=== PATIENT | male | born 1975 ===

== ENCOUNTER 2017-05-10 07:14 | Emergency (ER) | payer OTHER ==
[2017-05-10 07:18] VITALS: TEMP 97; BMI 33.7
[2017-05-10 07:30] VITALS: RESP 18
--- NOTE | 2017-05-10 07:51 | ED PDOC ---
Lower Extremity Pain/Injury Time Seen by Provider: 05/10/17 07:25 Chief Complaint (Nursing): Lower Extremity Problem/Injury History/Exam Limitations: no limitations Onset/Duration Of Symptoms: Days (1) Current Symptoms Are (Timing): Still Present Additional Complaint(s): Pt reports pain and swelling to L ankle and lower leg X 2 days, no h/o trauma, no paresthesias, no weakness. Pain worse when lying flat, better when dangling over bed. - Ankle/Foot Description Of Injury: Other (None) Alleviating Factor(s): OTC Pain Medication - Risk Factors DVT Risk Factors: Pos: None Past Medical History Reviewed: Nursing Documentation, Vital Signs Vital Signs: Last Vital Signs Temp 97 F L 05/10/17 07:26 Pulse 74 05/10/17 07:26 Resp 18 05/10/17 07:26 BP 139/95 H 05/10/17 07:26 Pulse Ox 98 05/10/17 07:27 - Medical History PMH: HTN, Hypercholesterolemia Denies: Chronic Kidney Disease - Surgical History Surgical History: Appendectomy (AGE 14) Other surgeries: L knee surgery - Family History Family History: States: Unknown Family Hx - Living Arrangements Living Arrangements: With Family - Social History Current smoker - smoking cessation education provided: No Alcohol: None - Home Medications Home Medications: Ambulatory Orders Medication Instructions Recorded Atorvastatin Calcium 20 mg PO DAILY 03/18/15 Ergocalciferol (Vitamin D2) 50,000 iu PO QWK 03/18/15 [Vitamin D] Icosapent Ethyl [Vascepa] 2 gm PO BID 03/18/15 Valsartan/Hydrochlorothiazide 1 tab PO DAILY 03/18/15 [Valsartan and Hydrochlorothiazide 12.5 mg-160] Hydrocodone/Acetaminophen [Vicodin 1 tab PO Q6 PRN 03/20/15 Es 300 mg-7.5 mg] traMADol [Ultram] 50 mg PO Q6H PRN #10 tab 05/10/17 - Allergies Allergies/Adverse Reactions: Allergies Allergy/AdvReac Type Severity Reaction Status Date / Time No Known Allergies Allergy Verified 05/10/17 07:27 Wells Criteria for PE - Wells Criteria for Pulmonary Embolism Clinical Signs and Symptoms of DVT: No P.E is #1 Diagnosis, or Equally Likely: No Heart Rate >100: No Immobilization at least 3 days;Surgery previous 4 weeks: No Previous, objectively diagnosed PE or DVT: No Hemoptysis: No Malignancy w/treatment within 6 months, or palliative: No Total Score: 0 Review of Systems Constitutional: Negative for: Fever, Chills Musculoskeletal: Positive for: Leg Pain, Foot Pain. Negative for: Back Pain Skin: Negative for: Rash, Lesions Neurological: Negative for: Weakness, Numbness, Headache Physical Exam - Reviewed Nursing Documentation Reviewed: Yes Vital Signs Reviewed: Yes - Physical Exam Appears: Positive for: Well, No Acute Distress Skin: Positive for: Normal Color, Warm, Dry Cardiovascular/Chest: Positive for: Regular Rate, Rhythm Respiratory: Positive for: Normal Breath Sounds Extremity: Positive for: Normal ROM, Tenderness (L lateral ankle), Capillary Refill (<2 sec). Negative for: Pedal Edema, Calf Tenderness, Deformity, Swelling Neurologic/Psych: Positive for: Alert, Oriented. Negative for: Motor/Sensory Deficits - ECG O2 Sat by Pulse Oximetry: 98 - Other Rad XR L ankle X-Ray: Read By Radiologist (No acute fractures or dislocations. If symptoms persist consider followup CT scan or MRI. Tiny corticated bony density within the soft tissues subjacent to the inferior tip medial malleolus possibly representing some old posttraumatic mineralization or old unfused fracture deformity. Consider follow-up studies as above if necessary.) XR L foot X-Ray: Read By Radiologist (No acute displaced fracture seen. If symptoms persist or occult fracture suspected clinically recommend repeat radiographs in 5-10 days as most fractures become radiographically evident in this timeframe.) - CT Scan/US Doppler LLE Other Rad Studies (CT/US): Radiology Report Reviewed (No evidence of deep venous thrombosis in the left lower extremity.) Medical Decision Making Medical Decision Makin yo with L ankle/lower leg pain. - XR L ankle/foot - LLE Doppler ultrasound - Tramadol Disposition - Clinical Impression Clinical Impression: Ankle pain, left - Disposition Referrals: Geo Shelby III, MD [Staff Provider] - Disposition: Routine/Home Disposition Time: 09:50 Condition: STABLE Prescriptions: traMADol [Ultram] 50 mg PO Q6H PRN #10 tab PRN Reason: Pain, Severe (8-10) Instructions: Arthralgia (ED)
[2017-05-10 10:12] VITALS: BP 130/90; PULSE 70
--- NOTE | 2017-05-10 10:17 | US ---
Left lower extremity ultrasound. Indication: Left lower extremity pain Technique: Duplex ultrasound evaluation of the left lower extremity Comparison: None available Findings: There is normal flow, compressibility, and augmentation of the left common femoral, femoral, and popliteal veins. The left posterior tibial veins appear patent. Impression: No evidence of deep venous thrombosis in the left lower extremity.
--- NOTE | 2017-05-10 12:28 | RAD ---
PROCEDURE: Left Ankle Radiographs. HISTORY: Lateral pain COMPARISON: Comparison made with concurrent radiographs of the left foot as well as prior radiographs of the left foot dated 05/24/2014 FINDINGS: BONES: Current study reveals no evidence of acute displaced fracture nor dislocation. Talar dome intact. JOINTS: Conical mortise maintained. There is a small on elliptical shaped corticated density within the soft tissues subjacent to inferior tip of the medial malleolus likely representing some old posttraumatic mineralization or possibly old unfused avulsion fracture. Subchondral cystic changes are also noted within the inferior tip of the medial malleolus. Minor bilateral soft tissue swelling. Plantar and posterior calcaneal surface enthesophytes present. SOFT TISSUES: Normal. OTHER FINDINGS: None. IMPRESSION: No acute fractures or dislocations. . If symptoms persist consider followup CT scan or MRI Tiny corticated bony density within the soft tissues subjacent to the inferior tip medial malleolus possibly representing some old posttraumatic mineralization or old unfused fracture deformity. Consider follow-up studies as above if necessary
--- NOTE | 2017-05-10 12:44 | RAD ---
PROCEDURE: Left Foot Radiographs. HISTORY: Lateral pain COMPARISON: Comparison made with prior radiographs left foot 05/24/2014. Correlation also made with concurrent left ankle radiographs. FINDINGS: BONES: No evidence of acute displaced fracture nor dislocation. The osseous structures appear grossly intact. Small plantar and posterior calcaneal surface enthesophytes of former slightly larger than latter unchanged. Previously noted small elliptical shaped corticated density within the soft tissues subjacent to inferior tip of the medial malleolus likely representing some old posttraumatic mineralization or possibly old unfused avulsion fracture less well seen compared to prior ankle radiographs. Subchondral cystic changes are also noted within the inferior tip of the medial malleolus JOINTS: Normal. SOFT TISSUES: Normal. OTHER FINDINGS: None. IMPRESSION: No acute displaced fracture seen. If symptoms persist or occult fracture suspected clinically recommend repeat radiographs in 5-10 days as most fractures become radiographically evident in this timeframe. S. See above discussion for additional findings and details.
[2017-05-18 15:51] VITALS: O2SAT 98
== END 2017-05-10 10:08 | disposition home or self-care (01) ==
LOC: H.ER 07:14
DX: M25.572 Pain in left ankle and joints of left foot (principal); I10 Essential (primary) hypertension

== ENCOUNTER 2018-10-11 06:48 | Day surgery (SDC) | payer BC, OTHER ==
[2018-10-02 09:02] VITALS: BMI 33.8
--- NOTE | 2018-10-02 14:02 | RAD ---
Date of service: 10/02/2018 HISTORY: pre-op COMPARISON: 03/18/2015 TECHNIQUE: Chest PA and lateral FINDINGS: LUNGS: No active pulmonary disease. PLEURA: No significant pleural effusion identified. No pneumothorax apparent. CARDIOVASCULAR: No aortic atherosclerotic calcification present. Normal cardiac size. No pulmonary vascular congestion. OSSEOUS STRUCTURES: No significant abnormalities. VISUALIZED UPPER ABDOMEN: Normal. OTHER FINDINGS: None. IMPRESSION: No active disease. No significant interval change compared to the prior examination(s).
[2018-10-02 14:19] LABS: SQUAMOUS EPITHIAL < 1 /hpf (0-5); URINE BILIRUBIN NEGATIVE (NEGATIVE); URINE BLOOD NEGATIVE (NEGATIVE); URINE CLARITY CLEAR (Clear); URINE COLOR YELLOW (YELLOW); URINE GLUCOSE (UA) NEG (Normal); URINE LEUKOCYTE ESTERASE NEG Leu/uL (Negative); URINE PROTEIN NEGATIVE (NEGATIVE); URINE UROBILINOGEN 0.2-1.0 mg/dL (0.2-1.0)
--- NOTE | 2018-10-02 17:44 | CARD ---
APPROVED REPORT Date of service: 10/02/2018 EKG Measurement Heart [id number] <Conclusion> Normal sinus rhythm Minimal voltage criteria for LVH, may be normal variant Borderline ECG
[2018-10-11 07:31] VITALS: O2SAT 99
[2018-10-11] MEDS ORDERED: Rocuronium 10 mg/ml (5 ml) ONE (09:37)
[2018-10-11] MEDS ORDERED: Midazolam 2 MG/2 ML VIAL ONE (09:37)
[2018-10-11] MEDS ORDERED: Propofol 10 mg/ml Inj (20 ML) ONE ×2 (09:37→11:38)
[2018-10-11] MEDS ORDERED: Lidocaine 4% (Laryng-O-Jet) Kit MM ONE (09:38)
[2018-10-11] MEDS ORDERED: Succinylcholine 200 mg/10 ml Inj IV ONE (09:38)
[2018-10-11] MEDS ORDERED: Neostigmine 1:1000 (1 mg/ml) Inj ONE (09:38)
[2018-10-11] MEDS ORDERED: Lidocaine 1% 5ml Abboject ONE (09:38)
--- NOTE | 2018-10-11 09:38 | CP.SDSHP ---
Same Day Surgery H & P - History Proposed Procedure: Right shoulder arthroscopy Pre-Op Diagnosis: Right shoulder SLAP tear - Previous Medical/Surgical History Cardiac: Hypertension Pain: 4.Moderate Pain Previous Surgical History: appendectomy, L knee arthroscopy - Allergies Allergies: Allergies No Known Allergies Allergy (Verified 10/11/18 07:00) - Current Medications Current Medications: metoprolol - Physical Exam General Appearance: NAD Vital Signs: Vital Signs 10/11/18 10/11/18 07:29 07:35 Temperature 98.7 F Pulse Rate 69 69 Respiratory 18 Rate Blood Pressure 146/91 H O2 Sat by Pulse 99 Oximetry Mental Status: Alert & Oriented x3 Neuro: WNL Heart: WNL Lungs: WNL GI: WNL Social History: Alcohol (socially) - {Optional Preform as Required} Abdomen: WNL Integument: WNL Ortho: Other ENT: WNL - Impression Impression: Patient is a 43 y/o male who presents for elective right shoulder arthroscopy today after failing conservative treatment for the past 4-5 months. Risks/benefits/alternatives were explained to the patient who agrees to proceed with procedure listed. Pt. Evaluated Today:Candidate for Anesthesia & Procedure: Yes - Date & Time Date: 10/11/18 Time: 09:00 Short Stay Discharge - Short Stay Discharge Admitting Diagnosis/Reason for Visit: M75.121/ S43.431A/ M25.611/ M25.511/ Disposition: HOME/ ROUTINE Referrals: Jg Ruiz MD [Primary Care Provider] -
[2018-10-11] MEDS ORDERED: Phenylephrine 10 mg/ml Inj ONE (09:40)
[2018-10-11] MEDS ORDERED: Lidocaine 2% w Epi 1:100,000 Inj IJ ONE (10:29)
[2018-10-11] MEDS ORDERED: Bacitracin Ointment 30 GM TUBE ONE (10:29)
[2018-10-11] MEDS ORDERED: Lidocaine 1% Inj (20ml) ONE (10:29)
[2018-10-11] MEDS ORDERED: Ropivacaine 0.5% 30ML IV ONE ×2 (10:32→10:44)
[2018-10-11] MEDS ORDERED: EPINEPHrine 1:1000 Nasal Sol(30mL) ONE (10:43)
[2018-10-11] MEDS ORDERED: Lactated Ringer's 1,000 ML IV ONE (11:20)
[2018-10-11] MEDS ORDERED: EPINEPHrine 1:1000 Nasal Sol(30mL) TOP ONE (12:30)
[2018-10-11] MEDS ORDERED: Lidocaine 1% Inj (20ml) TP ONE (12:32)
[2018-10-11] MEDS ORDERED: ceFAZolin IV 1 gm in Dextrose 1 GM/50 ML BAG IVPB ONE (12:45)
[2018-10-11] MEDS ORDERED: Oxycodone/Acetaminophen 5/325 mg Tab PO PRN ×2 (13:52)
[2018-10-11] MEDS ORDERED: HYDROmorphone 0.5 mg/0.5 ml ISec IVP PRN (13:53)
[2018-10-11] MEDS ORDERED: Lactated Ringer's 1,000 ML IV SCH ×2 (14:00)
--- NOTE | 2018-10-11 14:00 | PCM.ANESB1 ---
Interscalene Block - Brachial Plexus Date of Procedure: 10/11/18 Anesthesiologist: Dr. De Leon Pre-Procedure Diagnosis: Right shoulder labral tear Post-Procedure Diagnosis: Right shoulder labral tear Procedure Performed: Interscalene Block of Brachial Plexus Right - Procedure Interscalene Block of Brachial Plexus: This procedure was explained to the patient that it is for post-operative pain management. Consent was obtained after a thorough discussion with the patient regarding the benefits and possible complications of local anesthetic block of the Brachial Plexus at the Interscalene area. The patient was brought to the Operating Room and standard monitors were applied. Time out was held with the circulating nurse to confirm the correct surgery and appropriate block. After applying Oxygen by nasal cannula and administering IV Sedation, the patient's head was gently rotated away from the right operative shoulder and the anterior scalene groove was carefully palpated. The ultrasound transducer was then applied to the skin in the transverse plane and the brachial plexus was visualized lateral to the carotid artery and in between the anterior and middle scalene muscles. After identification,the anterior lateral portion of the neck was prepped with Chloraprep solution and Lidocaine 1% was injected subcutaneously for topical analgesia. At this point, a # 22 gauge Stimuplex 2 inches insulated needle was inserted into the interscalene groove and directed in a caudal and midline direction. The needle was inserted lateral to the ultrasound transducer in-plane towards the brachial plexus in a [id number] direction. Needle advancement was performed carefully under direct ultrasound visualization. Nerve stimulator was used and twitched of the affected extremity including the hand brachialis muscles, biceps and the deltoid was obtained at a current of 0.3MA. After repeated negative aspiration, 5cc of 0.5% Ropivacaine were injected and this was followed with 25cc of 0.5% Ropivacaine . Under ultrasound guidance the local anesthetics were observed surrounding the roots of the brachial plexus. The needle was removed intact and sterile dressing was applied. The patient had stable vital signs, was conscious and in no apparent distress. The patient tolerated the interscalene block of the bracheal plexus well with stable vital signs and was prepared for subsequent surgery.
[2018-10-11 14:12] VITALS: RESP 18
[2018-10-11 16:20] VITALS: BP 127/80; PULSE 67; TEMP 97.3
--- NOTE | 2018-10-11 16:45 | PCM.SURG1 ---
Surgeon's Initial Post Op Note - Surgeon's Notes Surgeon: [employer] Intern: REESE Thakur/ OSCAR Sanchez Type of Anesthesia: General Endo, Block Regional Anesthesia Administered By: DR Piotr Saravia Pre-Operative Diagnosis: painful R TSR Operative Findings: Tear glenoid labrum. biceps tendon avulsion. subacrpomial impingemnt. Acromioclavicular joint arthritis Post-Operative Diagnosis: tear glenoid labrum. biceps tendon avulsion. subacromial impingement. Acromioclavicualr joint arthritis. adhesions/ bursitis subacromial space Right shoulder Operation Performed: arthroscopic repair glenoid labrum. arthroscopic biceps tenodeisis. arthroscopic partial distal claviculectomy. arthroscopic acromiop;lasty. arthroscopic debridement subacromial space/lysisi of adhesios Specimen/Specimens Removed: cartilage/tendon/ bursa/bone Estimated Blood Loss: EBL {In ML}: 15 Blood Products Given: N/A Drains Used: No Drains Post-Op Condition: Fair Date of Surgery/Procedure: 10/11/18 Time of Surgery/Procedure: 12:30 (time in room 1120)
--- NOTE | 2018-10-13 11:27 | OP ---
PROCEDURE DATE: 10/11/2018 SURGEON: Geo Shelby MD ATHLETIC SCOUT: BERNY Hawkins, certified registered nursing cutter first. SECOND WAFER CUTTER: Jakob Madrigal PA-C. ANESTHESIA: General endotracheal anesthesia with regional block. ANESTHESIOLOGIST: Piotr Saravia MD PREOPERATIVE DIAGNOSIS: Painful right shoulder. POSTOPERATIVE DIAGNOSES: 1. Tear, glenoid labrum. 2. Biceps tendon avulsion. 3. Subacromial impingement. 4. Acromioclavicular joint arthritis. 5. Adhesions, bursitis in the subacromial space. OPERATIVE FINDINGS: 1. Tear, glenoid labrum. 2. Biceps tendon avulsion from the supraglenoid tubercle. 3. Subacromial impingement. 4. Acromioclavicular joint arthritis. OPERATIONS PERFORMED: 1. Arthroscopic repair, glenoid labrum. 2. Arthroscopic biceps tenodesis. 3. Arthroscopic partial distal claviculectomy. 4. Arthroscopic acromioplasty. 5. Arthroscopic debridement of the subacromial space. 6. Arthroscopic lysis of adhesions. SPECIMENS REMOVED: Cartilage, tendon, bursa, and bone. BLOOD PRODUCTS: No blood products given. BLOOD LOSS: 15 mL. DRAINS: No drains. POSTOPERATIVE CONDITION: Stable. TIME IN THE ROOM: 11:20. TIME OF SURGERY: 12:30. OPERATIVE INDICATIONS: A 43-year-old gentleman presents with pain and restricted range of motion of the shoulder. The patient presents with marked discomfort, pain, and restricted range of motion of the shoulder, refractory to conservative approach consisting of activity modification, intra-articular injection, and therapy. Pros, cons, risks, and benefits of surgical approach were discussed. The possibility of mechanical failure, infection, thromboembolic disease, secondary or tertiary surgery is discussed. The patient no longer cannot withstand the discomfort. After having obtained informed consent, after thoroughly discussing the pros, cons, risks, and benefits, surgical approach, possibility of mechanical failure, infection, thromboembolic disease, secondary or tertiary surgery, the patient identified as Juan Pablo Millan, can no longer withstand the discomfort. The right upper extremity was prepped and free draped in usual fashion for upper extremity surgery. DESCRIPTION OF PROCEDURE: After having obtained informed consent in the above fashion, after having identified the side, site, and procedure, and critical pause/time-out, after the satisfactory induction of the anesthetic, patient identified as Juan Pablo Millan in the modified ibarra chair position, the right upper extremity was prepped and free draped in usual fashion for upper extremity surgery. The topographic anatomy of the shoulder was marked, spine of the scapula, lateral aspect of the acromion, coracoid process. The joint was insufflated with 10 mL of 1% lidocaine without epinephrine. Using #11 blade, followed by spreading, followed by introduction of the blunt trocar, the arthroscope was introduced. Examination of the joint commences. This having been accomplished, triangulation was accomplished using #18-gauge spinal needle. Great care was taken to stay lateral to the coracoid process. The Wissinger munir was introduced into the joint as well as the cannula. With the arthroscope posteriorly, a thorough debridement of glenohumeral joint was accomplished. There was found to be aggressive synovitis and tear of the glenoid labrum with separation, extending to the root of the biceps tendon which was as well. This having been accomplished, triangulation was accomplished, using #18-gauge spinal needle, followed by #11 blade, followed by spreading, with the arthroscope laterally using straight hemostat. With the arthroscope posteriorly, a thorough debridement of the glenohumeral joint was accomplished. The separation between the labrum of the glenoid was developed using the 3.4 mm [place] suction punch. The lasso was introduced and brought out anteriorly. The FiberTape was placed anteriorly. Drilling was accomplished at the 1 o'clock position on the clock face, and the labrum was thus repaired. Two further anchors were employed, and attention was now turned to the biceps tendon avulsion. The nitinol wire and lasso were placed at the root of the biceps tendon. This was brought out anteriorly. The tag was placed around the root of the biceps tendon. Drilling was accomplished, and the intra-articular biceps tenodesis was accomplished with the PushLock anchor. Thorough debridement of the glenohumeral joint was continued, with the arthroscope now placed in the subacromial space, this was found to be aggressive adhesions in the subacromial space. With the arthroscopic shaver mid laterally, thorough debridement of the glenohumeral joint and thorough debridement of the subacromial space with lysis of adhesions and arthroscopic bursectomy was accomplished. With the arthroscope posteriorly, arthroscopic biceps tenodesis having been accomplished, arthroscopic repair of the glenoid labrum having been accomplished, and arthroscopic partial distal claviculectomy was accomplished with the arthroscope posteriorly using the bur. The distal 1-cm of the clavicle was debrided using the arthroscopic bur to include the articular surface. Arthroscopic bursectomy having been accomplished, debridement of the arthroscopic subacromial space having been accomplished, hemostasis was controlled. With the arthroscope posteriorly, the rotator cuff was inspected, there was found to be no dory tear. Arthroscopic partial distal claviculectomy having been accomplished, arthroscopic acromioplasty having been accomplished, arthroscopic repair of the anterior glenoid labrum having been accomplished, arthroscopic biceps tenodesis having been accomplished. Geo Shelby MD
== END 2018-10-11 17:00 | disposition home or self-care (01) ==
LOC: H.OPSURG 06:48
PROVIDERS: ATTEND Orthopaedic Surgery
DX: M25.511 Pain in right shoulder (principal); M25.611 Stiffness of right shoulder, not elsewhere classified; M75.121 Complete rotator cuff tear or rupture of right shoulder, not specified as traumatic; E78.5 Hyperlipidemia, unspecified; I10 Essential (primary) hypertension; M10.9 Gout, unspecified; S46.291A Other injury of muscle, fascia and tendon of other parts of biceps, right arm, initial encounter; X58.XXXA Exposure to other specified factors, initial encounter; M25.811 Other specified joint disorders, right shoulder
CPT/HCPCS: 29823; 29826; 29828; 71046; 81003; 93005; J0330; J0690; J2250; J2370; J2704; J2710; J2765; J3010; J7120

== ENCOUNTER 2019-01-17 05:59 | Day surgery (SDC) | payer OTHER ==
[2019-01-17] MEDS ORDERED: Lactated Ringer's 1,000 ML IV ONE (06:45)
[2019-01-17] MEDS ORDERED: Ropivacaine 0.5% 30ML IV ONE (07:18)
--- NOTE | 2019-01-17 07:21 | CP.SDSHP ---
Same Day Surgery H & P - History Proposed Procedure: Left shoulder arthroscopy Pre-Op Diagnosis: Left shoulder SLAP tear - Previous Medical/Surgical History Cardiac: Hypertension Misc: Other (Gout) Pain: 4.Moderate Pain Previous Surgical History: Right shoulder arthroscopy, knee arthroscopy, appendectomy - Allergies Allergies: Allergies No Known Allergies Allergy (Verified 01/17/19 06:22) - Current Medications Current Medications: metoprolol, allopurinol - Physical Exam General Appearance: NAD Vital Signs: Vital Signs 01/17/19 01/17/19 06:37 07:00 Temperature 98.6 F Pulse Rate 75 75 Respiratory 18 Rate Blood Pressure 144/94 H O2 Sat by Pulse 100 Oximetry Mental Status: Alert & Oriented x3 Neuro: WNL Heart: WNL Lungs: WNL GI: WNL Social History: Alcohol (occassionally) - {Optional Preform as Required} Abdomen: WNL Integument: WNL Ortho: Other (L shoulder: limited ROM 2nd to pain, no lesions/masses/erythema, sensation and motor intact MN/UN/RN, radial pulse intact) - Impression Impression: Patient is a 43 y/o male who presents for elective L shoulder arthroscopy for chronic left shoulder pain. The pain has been resistant to conservative means including PT, oral meds and cortisone injection. Risks/benefits/alternatives were explained to patient who understands and agrees to proceed with above procedure. Pt. Evaluated Today:Candidate for Anesthesia & Procedure: Yes - Date & Time Date: 01/17/19 Time: 07:26 Short Stay Discharge - Short Stay Discharge Admitting Diagnosis/Reason for Visit: M25.512/M25.9/M24.212/M25.619 Disposition: HOME/ ROUTINE Medications: oxyCODONE/Acetaminophen [Percocet 5/325 mg Tab] 2 ea PO Q6 PRN #30 tab PRN Reason: Pain, Severe (8-10) Referrals: Jg Ruiz MD [Primary Care Provider] -
[2019-01-17] MEDS ORDERED: Succinylcholine 200 mg/10 ml Inj IV ONE (07:34)
[2019-01-17] MEDS ORDERED: Lidocaine 4% (Laryng-O-Jet) Kit MM ONE (07:34)
[2019-01-17] MEDS ORDERED: Midazolam 2 MG/2 ML VIAL ONE (07:34)
[2019-01-17] MEDS ORDERED: Neostigmine 1:1000 (1 mg/ml) Inj ONE (07:34)
[2019-01-17] MEDS ORDERED: Propofol 10 mg/ml Inj (20 ML) ONE (07:34)
[2019-01-17] MEDS ORDERED: Rocuronium 10 mg/ml (5 ml) ONE (07:34)
[2019-01-17] MEDS ORDERED: Dexamethasone 4 mg/1 ml ONE (07:35)
[2019-01-17] MEDS ORDERED: Lidocaine 1% 5ml Abboject ONE (07:35)
[2019-01-17] MEDS ORDERED: EPINEPHrine 1 mg/ml (1:1000) Inj ONE ×2 (07:36)
[2019-01-17] MEDS ORDERED: Phenylephrine 10 mg/ml Inj ONE (07:36)
[2019-01-17] MEDS ORDERED: Lidocaine 1% Inj (20ml) IJ ONE ×2 (08:04→09:05)
[2019-01-17] MEDS: Bacitracin Ointment 30 GM TUBE ONE ×2 (09:11→10:25)
[2019-01-17] MEDS ORDERED: Oxycodone/Acetaminophen 5/325 mg Tab PO PRN ×2 (09:38)
[2019-01-17 10:21] VITALS: RESP 18; BMI 33.8
[2019-01-17] MEDS ORDERED: HYDROmorphone 0.5 mg/0.5 ml ISec IVP PRN (10:45)
[2019-01-17] MEDS ORDERED: Lactated Ringer's 1,000 ML IV SCH (10:45)
--- NOTE | 2019-01-17 10:52 | PCM.ANESB1 ---
Interscalene Block - Brachial Plexus Date of Procedure: 01/17/19 Anesthesiologist: Dr. De Leon Pre-Procedure Diagnosis: Left shoulder labral tear poss. rotaor cuff tear Post-Procedure Diagnosis: Left shoulder labral tear poss. rotaor cuff tear Procedure Performed: Interscalene Block of Brachial Plexus Left - Procedure Interscalene Block of Brachial Plexus: This procedure was explained to the patient that it is for post-operative pain management. Consent was obtained after a thorough discussion with the patient regarding the benefits and possible complications of local anesthetic block of the Brachial Plexus at the Interscalene area. The patient was brought to the Operating Room and standard monitors were applied. Time out was held with the circulating nurse to confirm the correct surgery and appropriate block. After applying Oxygen by nasal cannula and administering IV Sedation, the patient's head was gently rotated away from the left operative shoulder and the anterior scalene groove was carefully palpated. The ultrasound transducer was then applied to the skin in the transverse plane and the brachial plexus was visualized lateral to the carotid artery and in between the anterior and middle scalene muscles. After identification,the anterior lateral portion of the neck was prepped with Chloraprep solution and Lidocaine 1% was injected kraus bcutaneously for topical analgesia. At this point, a # 22 gauge Stimuplex 2 inches insulated needle was inserted into the interscalene groove and directed in a caudal and midline direction. The needle was inserted lateral to the ultrasound transducer in-plane towards the brachial plexus in a [id number] direction. Needle advancement was performed carefully under direct ultrasound visualization. Nerve stimulator was used and twitched of the affected extremity including the hand brachialis muscles, biceps and the deltoid was obtained at a current of 0.3MA. After repeated negative aspiration, 5cc of 0.5% Ropivacaine were injected and this was followed with 25cc of 0.5% Ropivacaine. Under ultrasound guidance the local anesthetics were observed surrounding the roots of the brachial plexus. The needle was removed intact and sterile dressing was applied. The patient had stable vital signs, was conscious and in no apparent distress. The patient tolerated the interscalene block of the bracheal plexus well with stable vital signs and was prepared for subsequent surgery.
[2019-01-17 15:28] VITALS: BP 152/93; PULSE 95; TEMP 98.4; O2SAT 95
--- NOTE | 2019-01-17 18:39 | PCM.SURG1 ---
Surgeon's Initial Post Op Note - Surgeon's Notes Surgeon: [employer] Engineer: REESE Thakur Type of Anesthesia: General Endo, Block Regional Anesthesia Administered By: Dr cuadra Pre-Operative Diagnosis: labral tear L shouder. A/C joint arthropathy Operative Findings: labral tear L shoulder ( gr 2 SLAP lesion). avulsion biceps tendon anchor. a/C joint arthrits/subacromial impingement. bursitis/adhesisons subacromila space Post-Operative Diagnosis: as above Operation Performed: arthroscopic labral repair. arthroscopic biceps tenodesis. arthroiscopic partial distal claviculectomy. arthroscopic acromioplasty. arthroscopic bursectomy/ lysisi of adhesions Specimen/Specimens Removed: cartilage/bone/bursa Estimated Blood Loss: EBL {In ML}: 20 Blood Products Given: N/A Drains Used: No Drains Post-Op Condition: Fair Date of Surgery/Procedure: 01/17/19 Time of Surgery/Procedure: 09:05 (7:45)
--- NOTE | 2019-01-18 12:37 | OP ---
PROCEDURE DATE: 01/17/2019 PREOPERATIVE DIAGNOSES: 1. Painful left shoulder. 2. Labral tear, left shoulder. 3. Acromioclavicular joint arthropathy. POSTOPERATIVE DIAGNOSIS: As per operative findings, 1. Labral tear of left shoulder (grade 2 superior labrum anterior and posterior lesion extending anterior to posterior to the root of the biceps tendon. 2. Avulsion of the biceps tendon anchor. 3. Acromioclavicular joint arthropathy. 4. Subacromial impingement. 5. Bursitis and adhesions in the subacromial space. OPERATION PERFORMED: 1. Arthroscopic labral repair and repair of superior labrum anterior and posterior lesion. 2. Arthroscopic intraarticular biceps tenodesis. 3. Arthroscopic partial distal claviculectomy. 4. Arthroscopic acromioplasty. 5. Arthroscopic debridement extensive of the glenohumeral joint. 6. Arthroscopic debridement of the subacromial space, lysis of adhesions, and partial bursectomy. SURGEON: Geo Shelby MD STOCK TURNER: Micaela Isabel, certified registered nursing international first officer. TYPE OF ANESTHESIA: General endotracheal anesthesia with a regional block. ANESTHESIA ADMINISTERED BY: Jg De Leon MD OPERATIVE FINDINGS: 1. Labral tear of left shoulder (grade 2 SLAP lesion). 2. Avulsion of biceps tendon anchor. 3. AC joint arthritis. 4. Subacromial impingement. 5. Extensive bursitis and adhesions in the subacromial space. ESTIMATED BLOOD LOSS: 20 mL. No blood products given. DRAINS: No drains. POSTOPERATIVE CONDITION: Stable. TIME OF PROCEDURE: 09:05. TIME IN THE ROOM: 07:45. SPECIMENS REMOVED: Cartilage, bone, and bursa. OPERATIVE INDICATIONS: Juan Pablo Millan is a 43-year-old gentleman who has had persistent left shoulder pain and restricted range of motion for over a year. The patient was treated conservatively with subacromial injection, activity modification, oral anti-inflammatory medication, and therapy. Pros, cons, risks and benefits of surgical arthroscopy, decompression and repair were discussed, the possibility of stiffness, mechanical failure, infection, thromboembolic disease, possibility of secondary or tertiary surgery was discussed. The patient can no longer withstand the discomfort and wished the surgery to be accomplished. DESCRIPTION OF PROCEDURE: After having obtained informed consent in the above fashion, after having identified the side, site and procedure and a critical pause/time-out, after the satisfactory induction of the general endotracheal and regional block anesthesia by Dr. De Leon, the left upper extremity was placed in the upper extremity positioner. All bony prominences were well padded. The cervical spine was centralized and protected. After sterilely prepping and draping, after having identified the side, site and procedure and a critical pause/time-out, after the satisfactory induction of the anesthetic, after having obtained informed consent in the above fashion, the patient was identified as Juan Pablo Millan and the left upper extremity was prepped and free draped in the usual fashion for upper extremity shoulder surgery. The shoulder positioner was employed. The topographic anatomy of the shoulder after having obtained a critical pause/time-out was marked using the marker, the spine of the scapula, lateral aspect of the acromion and coracoid process. The joint was insufflated with 10 mL of 1% lidocaine without epinephrine. Using a #11 blade, followed by spreading, followed by introduction of blunt trocar, the arthroscope was introduced. Examination of the joint commences. There was found to be extensive synovitis, some chondral damage to the glenohumeral joint as well as a complete avulsion of the of glenoid labrum extending anterior to posterior to the root of the biceps tendon. The labrum was actually infolded over the glenoid bony margin. Triangulation was accomplished using #18-gauge spinal needle, taking great care to stay lateral to the coracoid process. Using a #11 blade, followed by spreading, followed by introduction of blunt trocar, the Wissinger munir was employed and the cannula was introduced atraumatically. A lateral portal, the so-called [place] fashion was discussed and was accomplished using #18-gauge spinal needle, followed by #11 blade, followed by spreading. With the arthroscope posteriorly, careful debridement of the glenohumeral joint was accomplished using the arthroscopic shaver. The arthroscopic shaver was employed for extensive debridement of the chondral damage of the glenoid. The inner free edge of the glenoid was debrided as well using the arthroscopic shaver. With the arthroscope posteriorly, the interval between the glenoid bony vault and the labrum was developed. This developed using the periosteum elevator. The biceps tendon anchor was also found to be avulsed. This having been accomplished with the arthroscope posteriorly, repair of the glenoid labrum was first initiated using the lasso, the nitinol wire was introduced into the joint and brought out anteriorly. The luggage tag suture was employed and this was at the 10 o'clock position on the left shoulder, it was brought out anteriorly. Drilling was accomplished. Please refer to the video photographs. The PushLock anchor was introduced and the PushLock anchor was impacted, thus repair of the SLAP lesion was initiated extending to approximately 9 o'clock on the glenoid clock face. The same exact procedure was accomplished for the extensive SLAP lesion extending anterior to posterior to the root of biceps tendon. The same exact procedure was accomplished. PushLock anchor was used at the 9 o'clock position. At the 11 o'clock position, a third anchor was introduced as well in the fashion just described and so complete repair of the SLAP lesion was accomplished. At this point in time, the biceps tendon anchor was identified and at this point in time, the lasso was introduced at the base of the biceps tendon anchor. Drilling was accomplished now at the 12 o'clock position. The PushLock anchor was loaded and the intra-articular biceps tenodesis was accomplished with the PushLock anchor. Thorough debridement of the posterior aspect of the labrum was accomplished. The posterior labrum was not , but there was evidence of inner free edge tear and this was debrided using the 3.4 mm [employer] Suction Punch, the arthroscopic shaver, and the arthroscopic wand. Thorough debridement of the glenohumeral joint continues and was completed on the chondral surface of both the humeral head and the glenoid using the arthroscopic shaver. At this point in time, hemostasis was controlled with the arthroscopic wand. The arm was placed in dependency and the arthroscope was now placed in the mid lateral portal in the subacromial space. There were found to be extensive adhesions and bursitis in the subacromial space. With the arthroscope mid laterally using the arthroscopic shaver, careful debridement of the subacromial space was accomplished - subacromial bursectomy was accomplished as well as extensive lysis of adhesions in the subacromial space. With the arthroscope mid laterally, careful debridement of the subacromial space was accomplished using the arthroscopic wand. Bleeding points were controlled. Extensive debridement of the subacromial space was accomplished. Bursectomy was accomplished as well as lysis of adhesions. This having been accomplished with the arthroscope now mid laterally, a partial acromioplasty was accomplished. There was found to be a downward sloping acromion and there was found to be evidence of tendinosis without complete full-thickness tear of the rotator cuff. Partial acromioplasty was accomplished with the bur. At this point in time, the arthroscope was still mid laterally, the acromioclavicular joint was identified. The capsule was carefully debrided using a combination of the arthroscopic wand and the arthroscopic shaver. At this point in time, there was found to be evidence of compromise in the acromioclavicular joint. With the arthroscope mid laterally using the bur, a partial distal claviculectomy was accomplished of approximately the distal 1 cm of the clavicle to include the articular surface. Thorough arthroscopic debridement of the subacromial space and lysis of adhesions having been accomplished, arthroscopic bursectomy having been accomplished using the arthroscopic bur, partial distal claviculectomy having been accomplished, the wound was thoroughly irrigated. The subacromial space was clearly irrigated and debrided. Partial acromioplasty having been accomplished, partial distal claviculectomy, the wounds were thoroughly irrigated. Closures in layers with interrupted Vicryl and nylon. A compression dressing and shoulder immobilizer was applied. The operation completion was accomplished with the assistance of REESE Hawkins, who accomplished exposure and retraction at critical points in the procedure to achieve the operative goal. The patient was transferred from the operating table to the stretcher having tolerated the procedure well. Geo Shelby MD
== END 2019-01-17 16:45 | disposition home or self-care (01) ==
LOC: H.OPSURG 05:59
PROVIDERS: ATTEND Orthopaedic Surgery
DX: S43.52XA Sprain of left acromioclavicular joint, initial encounter (principal); S46.292A Other injury of muscle, fascia and tendon of other parts of biceps, left arm, initial encounter; M10.9 Gout, unspecified; E78.5 Hyperlipidemia, unspecified; I10 Essential (primary) hypertension; M75.42 Impingement syndrome of left shoulder; M75.52 Bursitis of left shoulder
CPT/HCPCS: 29823; 29825; 29828; 88304; J0171; J0330; J0690; J1100; J2250; J2370; J2704; J2710; J2765; J3010; J7120